=== PATIENT | female | born 1955 | race Native Hawaiian/Other Pacific Islander ===

== ENCOUNTER 2018-02-02 16:19 | Outpatient (CLI) | payer BC ==
[~2018-02-02 16:19] MED LIST: BENICAR HCT1 TA2 PO; DEXILANT PO; DIOVAN HC1 PO; JANUMET XR1 TA1 PO; JANUMET1 TA1 PO; LEXAPRO20 MG PO; XANAX XR1 MG PO
== END 2018-02-02 20:38 | disposition home or self-care (01) ==
LOC: RAD 16:19
DX: M54.12 Radiculopathy, cervical region (principal)

== ENCOUNTER 2020-10-09 07:49 | Outpatient (CLI) | payer BC | END 2020-10-09 22:39 | disposition home or self-care (01) | LOC: US 07:49 | PROVIDERS: ATTEND Registered Nurse | DX: R10.13 Epigastric pain (principal) ==

== ENCOUNTER 2020-10-13 08:02 | Outpatient (CLI) | payer BC | END 2020-10-13 19:48 | disposition home or self-care (01) | LOC: NM 08:02 | PROVIDERS: ATTEND Registered Nurse | DX: R10.11 Right upper quadrant pain (principal); R10.13 Epigastric pain | CPT/HCPCS: A9537 ==

== ENCOUNTER 2021-12-15 16:29 | Outpatient (CLI) | payer OTHER | END 2021-12-15 21:40 | disposition home or self-care (01) | LOC: CT 16:29 | PROVIDERS: ATTEND Nurse Practitioner | DX: Z13.6 Encounter for screening for cardiovascular disorders (principal) ==

== ENCOUNTER 2022-12-28 15:43 | Outpatient (CLI) | payer OTHER | END 2022-12-28 19:06 | disposition home or self-care (01) | LOC: RAD 15:43 | PROVIDERS: ATTEND Nurse Practitioner | DX: M25.552 Pain in left hip (principal); M25.562 Pain in left knee; M54.59 Other low back pain; W19.XXXA Unspecified fall, initial encounter ==